=== PATIENT | female | born 1980 | race Caucasian/White ===

== ENCOUNTER → 2017-05-05 | Outpatient (CLI) | payer OTHER ==
[~2017-05-05] MED LIST: ACET50TA PO; BIOT50004 PO; D400400C PO; DOCU10ELUD PO; GLYB5TAB5 PO; IBUP80TA PO; LISI10TA2 PO; METF500T13 PO; MIRA3350 PO; OMEP20CA3 PO; PANT40TA2 PO; PHEN15CA PO; PRENTAB74 PO
[2017-05-05 10:11] LABS: BASO % 0.6 % (0.0-1.0); EOS # 0.3 K/mm3 (0.0-0.50); EOS % 3.5 % (0.0-3.0); LARGE UNSTAINED CELL # 0.2 K/mm3 (0.0-0.4); LYMPH % 38.1 % (24.0-44.0); MEAN CORPUSCULAR HEMOGLOBIN 29.5 pg (27.0-33.0); MEAN CORPUSCULAR HGB CONC 34.5 g/dl (32.0-36.5); MEAN CORPUSCULAR VOLUME 85.4 fl (80.0-96.0); MONO # 0.5 K/mm3 (0.0-0.8); MONO % 6.4 % (0.0-5.0); NEUTROPHILS # 3.7 K/mm3 (1.8-7.7); NEUTROPHILS % 49.4 % (36.0-66.0); PLATELET COUNT, AUTOMATED 279 k/mm3 (150-450); WHITE BLOOD COUNT 7.4 K/mm3 (4.0-10.0)
[2017-05-05 10:43] LABS: ALBUMIN 3.6 GM/DL (3.2-5.2); ALKALINE PHOSPHATASE 62 U/L (45-117); ALT/SGPT 31 U/L (12-78); ANION GAP 9 MEQ/L (8-16); AST/SGOT 14 U/L (15-37); BILIRUBIN,TOTAL 0.9 MG/DL (0.2-1.0); BLOOD UREA NITROGEN 11 MG/DL (7-18); CALCIUM LEVEL 8.7 MG/DL (8.5-10.1); CARBON DIOXIDE LEVEL 24 MEQ/L (21-32); CHLORIDE LEVEL 106 MEQ/L (98-107); CHOLESTEROL LEVEL 191 MG/DL (<200); CREATININE FOR GFR 0.74 MG/DL (0.55-1.02); FREE T4 1.21 NG/DL (0.76-1.46); GLOMERULAR FILTRATION RATE > 60.0 (>60); GLUCOSE, FASTING 92 MG/DL (70-105); POTASSIUM SERUM 4.5 MEQ/L (3.5-5.1); SODIUM LEVEL 139 MEQ/L (136-145); TOTAL PROTEIN 7.6 GM/DL (6.4-8.2); TRIGLYCERIDES LEVEL 198 MG/DL (<150)
== END ==
LOC: M LAB 09:33
PROVIDERS: ATTEND Nurse Practitioner Adult Health
DX: E55.9 Vitamin D deficiency, unspecified (principal); E66.9 Obesity, unspecified; E78.1 Pure hyperglyceridemia; E78.00 Pure hypercholesterolemia, unspecified; I10 Essential (primary) hypertension; Z79.899 Other long term (current) drug therapy

== ENCOUNTER 2017-06-15 12:24 | Outpatient (CLI) | payer OTHER ==
[~2017-06-15] VITALS: Ht 170.2 cm; Wt 117.0 kg
[2017-06-15] MEDS ORDERED: NS 1,000 ML IV ONE (13:30)
[2017-06-15] MEDS ORDERED: PROPOFOL 200 MG/20 ML VIAL As Ordered ONE (14:33)
--- NOTE | 2017-06-15 15:24 | ROOR ---
Patient Name: Elham Anguiano Procedure Date: 06/15/2017 3:07 PM Date of : 1980 Age: 36 Room: [facility] Gender: Female Note Status: Finalized Procedure: Colonoscopy Indications: Hematochezia Providers: Raman GONZALEZ MD Referring MD: KAYY SCALES NP Requesting Provider: Medicines: Monitored Anesthesia Care Complications: No immediate complications. Procedure: Pre-Anesthesia Assessment: - The heart rate, respiratory rate, oxygen saturations, blood pressure, adequacy of pulmonary ventilation, and response to care were monitored throughout the procedure. The Colonoscope was introduced through the anus and advanced to 3 cm into the ileum. The colonoscopy was performed without difficulty. The patient tolerated the procedure well. The quality of the bowel preparation was good. Findings: The perianal and digital rectal examinations were normal. Small Internal Hemorrhoids. A few medium-mouthed diverticula were found in the sigmoid colon. The terminal ileum appeared normal. The entire examined colon appeared normal on direct and retroflexion views. Impression: - Small Internal Hemorrhoids. - Mild diverticulosis in the sigmoid colon. - The examined portion of the ileum was normal. - The entire examined colon is normal on direct and retroflexion views. - No specimens collected. Recommendation: - Use fiber, for example Citrucel, Fibercon, Konsyl or Metamucil. Raman Gonzalez MD Raman GONZALEZ MD 06/15/2017 3:24:07 PM This report has been signed electronically. Number of Addenda: 0 Note Initiated On: 06/15/2017 3:07 PM Estimated Blood Loss: Estimated blood loss: none.
[2017-06-15 15:50] VITALS: BP 131/84
== END 2017-06-15 16:10 | disposition home or self-care (01) ==
LOC: M OPP 12:24
PROVIDERS: ATTEND Internal Medicine Gastroenterology
DX: K92.1 Melena (principal); K64.8 Other hemorrhoids; K57.30 Diverticulosis of large intestine without perforation or abscess without bleeding; I10 Essential (primary) hypertension; E11.9 Type 2 diabetes mellitus without complications; K59.00 Constipation, unspecified; R12 Heartburn; J45.909 Unspecified asthma, uncomplicated; Z88.2 Allergy status to sulfonamides; Z91.013 Allergy to seafood; Z91.018 Allergy to other foods; Z79.84 Long term (current) use of oral hypoglycemic drugs; Z79.899 Other long term (current) drug therapy; Z80.3 Family history of malignant neoplasm of breast

== ENCOUNTER → 2017-10-06 | Outpatient (CLI) | payer OTHER ==
[2017-10-06 09:24] LABS: BASO % 0.5 % (0.0-1.0); EOS # 0.1 10^3/uL (0.0-0.50); EOS % 1.3 % (0.0-3.0); HEMATOCRIT 42.5 % (36.0-47.0); HEMOGLOBIN 14.6 g/dl (12.0-16.0); IMMATURE GRANULOCYTE % 0.3 % (0-0); LYMPH # 3.1 10^3/uL (1.5-4.5); LYMPH % 40.3 % (24.0-44.0); MEAN CORPUSCULAR HEMOGLOBIN 29.3 pg (27.0-33.0); MEAN CORPUSCULAR HGB CONC 34.4 g/dl (32.0-36.5); MEAN CORPUSCULAR VOLUME 85.2 fl (80.0-96.0); MONO # 0.7 10^3/uL (0.0-0.8); MONO % 8.5 % (0.0-5.0); NEUTROPHILS # 3.7 10^3/uL (1.8-7.7); NEUTROPHILS % 49.1 % (36.0-66.0); PLATELET COUNT, AUTOMATED 295 10^3/uL (150-450); RED BLOOD COUNT 4.99 10^6/uL (4.00-5.40); RED CELL DISTRIBUTION WIDTH 12.6 % (11.5-14.5); WHITE BLOOD COUNT 7.6 10^3/uL (4.0-10.0)
[2017-10-06 10:00] LABS: ALBUMIN/GLOBULIN RATIO 1.08 (1.00-1.93); ALKALINE PHOSPHATASE 53 U/L (45-117); ALT/SGPT 26 U/L (12-78); ANION GAP 8 MEQ/L (8-16); AST/SGOT 14 U/L (7-37); BILIRUBIN,TOTAL 0.9 MG/DL (0.2-1.0); BLOOD UREA NITROGEN 12 MG/DL (7-18); CALCIUM LEVEL 8.9 MG/DL (8.5-10.1); CARBON DIOXIDE LEVEL 27 MEQ/L (21-32); CHLORIDE LEVEL 105 MEQ/L (98-107); CHOLESTEROL LEVEL 174 MG/DL (<200); CHOLESTEROL RISK RATIO 3.866 (<5); CREATININE FOR GFR 0.75 MG/DL (0.55-1.02); FREE T4 1.33 NG/DL (0.76-1.46); GLOMERULAR FILTRATION RATE > 60.0 (>60); GLUCOSE, FASTING 106 MG/DL (70-105); HDL CHOLESTEROL 45 MG/DL (>40); NON-HDL-C 129 MG/DL; POTASSIUM SERUM 4.1 MEQ/L (3.5-5.1); SODIUM LEVEL 140 MEQ/L (136-145); THYROID STIMULATING HORMONE 0.333 uIU/ML (0.358-3.740); TOTAL PROTEIN 7.7 GM/DL (6.4-8.2); TRIGLYCERIDES LEVEL 120 MG/DL (<150)
[2017-10-06 10:08] LABS: ESTIMATED AVERAGE GLUCOSE 108 MG/DL (60-110); HEMOGLOBIN A1c 5.4 %
[2017-10-08 11:58] LABS: TOTAL 25(OH) VITAMIN D 51.1 NG/ML (30.0-100.0)
== END ==
LOC: M LAB 08:52
DX: E78.1 Pure hyperglyceridemia (principal); E55.9 Vitamin D deficiency, unspecified; E28.2 Polycystic ovarian syndrome; Z79.899 Other long term (current) drug therapy
CPT/HCPCS: 84443

== ENCOUNTER → 2018-03-02 | Outpatient (CLI) | payer OTHER ==
[2018-03-02 09:09] LABS: BASO % 0.6 % (0.0-1.0); EOS # 0.2 10^3/uL (0.0-0.50); EOS % 2.3 % (0.0-3.0); HEMATOCRIT 41.8 % (36.0-47.0); HEMOGLOBIN 14.2 g/dl (12.0-15.5); IMMATURE GRANULOCYTE % 0.3 % (0-3.0); MEAN CORPUSCULAR HEMOGLOBIN 29.5 pg (27.0-33.0); MEAN CORPUSCULAR VOLUME 86.9 fl (80.0-96.0); MONO # 0.9 10^3/uL (0.0-0.8); MONO % 12.9 % (0.0-5.0); NEUTROPHILS # 2.6 10^3/uL (1.8-7.7); NEUTROPHILS % 38.9 % (36.0-66.0); PLATELET COUNT, AUTOMATED 255 10^3/uL (150-450); RED BLOOD COUNT 4.81 10^6/uL (4.00-5.40); RED CELL DISTRIBUTION WIDTH 12.6 % (11.5-14.5); WHITE BLOOD COUNT 6.7 10^3/uL (4.0-10.0)
[2018-03-02 09:47] LABS: ALBUMIN 3.9 GM/DL (3.2-5.2); ALBUMIN/GLOBULIN RATIO 1.03 (1.00-1.93); ALKALINE PHOSPHATASE 71 U/L (45-117); ALT/SGPT 18 U/L (12-78); ANION GAP 7 MEQ/L (8-16); AST/SGOT 11 U/L (7-37); BILIRUBIN,TOTAL 0.6 MG/DL (0.2-1.0); BLOOD UREA NITROGEN 12 MG/DL (7-18); CALCIUM LEVEL 8.9 MG/DL (8.5-10.1); CARBON DIOXIDE LEVEL 29 MEQ/L (21-32); CHLORIDE LEVEL 104 MEQ/L (98-107); CHOLESTEROL LEVEL 150 MG/DL (<200); CHOLESTEROL RISK RATIO 3.191 (<5); FREE T4 1.21 NG/DL (0.76-1.46); GLOMERULAR FILTRATION RATE > 60.0 (>60); GLUCOSE, FASTING 93 MG/DL (70-100); HDL CHOLESTEROL 47 MG/DL (>40); LDL CHOLESTEROL 89.4 MG/DL (<100); NON-HDL-C 103 MG/DL; SODIUM LEVEL 140 MEQ/L (136-145); THYROID STIMULATING HORMONE 0.585 uIU/ML (0.358-3.740); TOTAL PROTEIN 7.7 GM/DL (6.4-8.2); TRIGLYCERIDES LEVEL 68 MG/DL (<150)
[2018-03-02 10:10] LABS: ESTIMATED AVERAGE GLUCOSE 103 MG/DL (60-110); HEMOGLOBIN A1c 5.2 %
[2018-03-04 10:12] LABS: TOTAL 25(OH) VITAMIN D 42.8 NG/ML (30.0-100.0)
== END ==
LOC: M LAB 08:19
DX: Z51.81 Encounter for therapeutic drug level monitoring (principal); Z79.899 Other long term (current) drug therapy; E78.1 Pure hyperglyceridemia; E55.9 Vitamin D deficiency, unspecified
CPT/HCPCS: 84443

== ENCOUNTER → 2018-11-29 | Outpatient (REF) | payer OTHER ==
[~2018-11-29] MED LIST changes: -PANT40TA2 PO; +PANT40TA3 PO
[2018-11-29 20:56] LABS: INFLUENZA A AMPLIFICATION POSITIVE (NEGATIVE); INFLUENZA B AMPLIFICATION NEGATIVE (NEGATIVE)
== END ==
LOC: M LAB REF 13:02
PROVIDERS: ATTEND Physician Assistant
DX: J11.1 Influenza due to unidentified influenza virus with other respiratory manifestations (principal)

== ENCOUNTER → 2018-12-07 | Outpatient (CLI) | payer OTHER ==
[2018-12-07 09:13] LABS: BASO % 0.4 % (0.0-1.0); EOS # 0.1 10^3/uL (0.0-0.50); EOS % 1.4 % (0.0-3.0); HEMOGLOBIN 13.7 g/dl (12.0-15.5); LYMPH % 42.5 % (24.0-44.0); MEAN CORPUSCULAR HEMOGLOBIN 28.7 pg (27.0-33.0); MEAN CORPUSCULAR HGB CONC 32.6 g/dl (32.0-36.5); MEAN CORPUSCULAR VOLUME 88.1 fl (80.0-96.0); MONO # 0.4 10^3/uL (0.0-0.8); MONO % 5.9 % (0.0-5.0); NEUTROPHILS # 3.5 10^3/uL (1.8-7.7); NEUTROPHILS % 49.7 % (36.0-66.0); PLATELET COUNT, AUTOMATED 257 10^3/uL (150-450); RED BLOOD COUNT 4.77 10^6/uL (4.00-5.40); WHITE BLOOD COUNT 7.1 10^3/uL (4.0-10.0)
[2018-12-07 09:42] LABS: ALBUMIN 3.6 GM/DL (3.2-5.2); ALT/SGPT 23 U/L (12-78); BILIRUBIN,TOTAL 0.5 MG/DL (0.2-1.0); BLOOD UREA NITROGEN 11 MG/DL (7-18); CARBON DIOXIDE LEVEL 30 MEQ/L (21-32); CHLORIDE LEVEL 107 MEQ/L (98-107); CHOLESTEROL LEVEL 180 MG/DL (<200); CREATININE FOR GFR 0.72 MG/DL (0.55-1.30); FREE T4 1.14 NG/DL (0.76-1.46); GLOMERULAR FILTRATION RATE > 60.0 (>60); GLUCOSE, FASTING 91 MG/DL (70-100); HDL CHOLESTEROL 41 MG/DL (>40); LDL CHOLESTEROL 95 MG/DL (<100); NON-HDL-C 139 MG/DL; POTASSIUM SERUM 4.6 MEQ/L (3.5-5.1); SODIUM LEVEL 142 MEQ/L (136-145); THYROID STIMULATING HORMONE 0.414 uIU/ML (0.358-3.740); TOTAL PROTEIN 7.3 GM/DL (6.4-8.2); TRIGLYCERIDES LEVEL 218 MG/DL (<150)
[2018-12-07 09:45] LABS: HEMOGLOBIN A1c 5.6 %
== END ==
LOC: M LAB 08:49
PROVIDERS: ATTEND Physician Assistant Medical
DX: E11.9 Type 2 diabetes mellitus without complications (principal); E05.90 Thyrotoxicosis, unspecified without thyrotoxic crisis or storm; R53.83 Other fatigue; E78.2 Mixed hyperlipidemia

== ENCOUNTER → 2020-07-25 | Outpatient (REF) | payer OTHER ==
[~2020-07-25] MED LIST changes: -ACET50TA PO; -DOCU10ELUD PO; +DOCU5LIQ PO; +LISI10TA15 PO; -LISI10TA2 PO; +MAPA500T17 PO; +PANT40TA29 PO; -PANT40TA3 PO
[2020-07-26 08:46] LABS: APPEARANCE, URINE CLOUDY (CLEAR); COLOR, URINE RED (YELLOW); SPECIFIC GRAVITY URINE AUTO 1.018 (1.002-1.035)
[2020-07-26 08:47] LABS: BILIRUBIN, URINE AUTO NEGATIVE (NEGATIVE); GLUCOSE, URINE (UA) AUTO NEGATIVE (NEGATIVE); KETONE, URINE AUTO NEGATIVE (NEGATIVE); NITRITE, URINE AUTO POSITIVE (NEGATIVE); PROTEIN, URINE AUTO 2+ mg/dL (NEGATIVE)
[2020-07-26 08:48] LABS: BLOOD, URINE BLOOD 3+ (NEGATIVE); LEUKOCYTE ESTERASE, URINE AUTO 2+ (NEGATIVE)
== END ==
LOC: M LAB REF 08:38
PROVIDERS: ATTEND Physician Assistant
DX: R30.0 Dysuria (principal)

== ENCOUNTER → 2020-11-22 | Outpatient (CLI) | payer OTHER ==
[2020-11-22 09:57] LABS: BASO % 0.3 % (0.0-1.0); EOS # 0.2 10^3/uL (0.0-0.5); EOS % 1.5 % (0.0-3.0); HEMATOCRIT 42.6 % (36.0-47.0); HEMOGLOBIN 14.2 g/dl (12.0-15.5); LYMPH # 3.3 10^3/uL (1.5-5.0); LYMPH % 31.3 % (24.0-44.0); MEAN CORPUSCULAR HEMOGLOBIN 30.3 pg (27.0-33.0); MEAN CORPUSCULAR HGB CONC 33.3 g/dl (32.0-36.5); MEAN CORPUSCULAR VOLUME 90.8 fl (80.0-96.0); MONO # 0.8 10^3/uL (0.0-0.8); MONO % 7.4 % (2.0-8.0); NEUTROPHILS # 6.1 10^3/uL (1.5-8.5); PLATELET COUNT, AUTOMATED 245 10^3/uL (150-450); RED BLOOD COUNT 4.69 10^6/uL (4.00-5.40); WHITE BLOOD COUNT 10.4 10^3/uL (4.0-10.0)
[2020-11-22 10:33] LABS: ALBUMIN 3.7 GM/DL (3.2-5.2); ALT/SGPT 50 U/L (12-78); BILIRUBIN,TOTAL 0.6 MG/DL (0.2-1.0); BLOOD UREA NITROGEN 15 MG/DL (7-18); CALCIUM LEVEL 9.1 MG/DL (8.5-10.1); CARBON DIOXIDE LEVEL 26 MEQ/L (21-32); CHLORIDE LEVEL 105 MEQ/L (98-107); CHOLESTEROL LEVEL 147 MG/DL (<200); CREATININE FOR GFR 0.81 MG/DL (0.55-1.30); FREE T4 0.95 NG/DL (0.76-1.46); GLOMERULAR FILTRATION RATE > 60.0 (>58); GLUCOSE, FASTING 123 MG/DL (70-100); HDL CHOLESTEROL 44 MG/DL (>40); LDL CHOLESTEROL 65 MG/DL (<100); NON-HDL-C 103 MG/DL; POTASSIUM SERUM 4.4 MEQ/L (3.5-5.1); SODIUM LEVEL 137 MEQ/L (136-145); TOTAL PROTEIN 7.4 GM/DL (6.4-8.2); TRIGLYCERIDES LEVEL 192 MG/DL (<150)
== END ==
LOC: M WUC 08:12
PROVIDERS: ATTEND Physician Assistant Medical
DX: R53.83 Other fatigue (principal); I10 Essential (primary) hypertension; E78.2 Mixed hyperlipidemia

== ENCOUNTER 2021-07-27 18:32 | Emergency (ER) | payer OTHER ==
[~2021-07-27] VITALS: Ht 170.2 cm; Wt 136.4 kg
--- OUTSIDE RECORDS SUMMARY | 2021-07-27 18:39 | CCD | Continuity of Care Document ---
Author Author Elham ALEMAN Organization Unknown Address [id number] [address] [place] [address] Phone [phone] Care Team Providers Care Planner Intern Name Role Phone CHEVY ALEMAN AUTM [phone] Social History Type Date Description Comments Sex Unknown Procedures Date Code Description Status 05/31/2021 11080 Office/Outpatient Established Lo w MDM 20-29 Min Completed 02/24/2021 03407 Office/Outpatient Established Lo w MDM 20-29 Min Completed Encounters Type Date Location Provider Dx Diagnosis Office Visit 05/31/2021 8:30a [facility] QUEENIE Eduardo I10 Essential (primary) hyperten latasha E78.5 Hyperlipidemia, unspecified E55.9 Vitamin D deficiency, unspec ified Office Visit 02/24/2021 9:30a [facility] QUEENIE Eduardo I10 Essential (primary) hyperten latasha E78.5 Hyperlipidemia, unspecified E66.9 Obesity, unspecified Assessments Date Code Description Provider 05/31/2021 I10 Essential (primary) hypertension QUEENIE Rick 05/31/2021 E78.5 Hyperlipidemia, unspecified QUEENIE Welch 05/31/2021 E55.9 Vitamin D deficiency, unspecifie d QUEENIE Rick 02/24/2021 I10 Essential (primary) hypertension QUEENIE Rick 02/24/2021 E78.5 Hyperlipidemia, unspecified QUEENIE Welch 02/24/2021 E66.9 Obesity, unspecified QUEENIE Rick Plan of Treatment Future Appointment(s):* 08/30/2021 2:00 pm - QUEENIE Rick at [facility] Referrals Refer to Reason for Referral Status Appt Date [facility] - ENT PATIENT WITH C/O PHANTOSMIA ,POSSIBLE POLYPS. PLEASE EVAL AND TREAT Sent 03/08/[address] [place] [address] [phone]
--- OUTSIDE RECORDS SUMMARY | 2021-07-27 18:39 | CCD ---
Author Author [facility] Organization [facility] Address Unknown Phone Unavailable Care Team Providers Care Rubber Off Name Role Phone Elieser Ballesteros MD Unavailable Unavailable Elieser Ballesteros MD Unavailable Unavailable Elieser Ballesteros MD Unavailable Unavailable Elieser Ballesteros MD Unavailable Unavailable Elieser Ballesteros MD Unavailable Unavailable Elieser Ballesteros MD Unavailable Unavailable Elieser Ballesteros MD Unavailable Unavailable Elieser Ballesteros MD Unavailable Unavailable Elieser Ballesteros MD Unavailable Unavailable Elieser Ballesteros MD Unavailable Unavailable Elieser Ballesteros MD Unavailable Unavailable Elieser Ballesteros MD Unavailable Unavailable Elieser Ballesteros MD Unavailable Unavailable Elieser Ballesteros MD Unavailable Unavailable Elieser Ballesteros MD Unavailable Unavailable Elieser Ballesteros MD Unavailable Unavailable Elieser Ballesteros MD Unavailable Unavailable Elieser Ballesteros MD Unavailable Unavailable Elieser Ballesteros MD Unavailable Unavailable Elieser Ballesteros MD Unavailable Unavailable Elieser Ballesteros MD Unavailable Unavailable Elieser Ballesteros MD Unavailable Unavailable Elieser Ballesteros MD Unavailable Unavailable Elieser Ballesteros MD Unavailable Unavailable Elieser Ballesteros MD Unavailable Unavailable Elieser Ballesteros MD Unavailable Unavailable Elieser Ballesteros MD Unavailable Unavailable Elieser Ballesteros MD Unavailable Unavailable Elieser Ballesteros MD Unavailable Unavailable Elieser Ballesteros MD Unavailable Unavailable Elieser Ballesteros MD Unavailable Unavailable Veronika ALEMAN CHEVY PA Unavailable Unavailable HETALTAVeronika PUENTES CHEVY PA Unavailable Unavailable TONTARSANA CRISTINA G CHEVY PA Unavailable Unavailable TONTADELORIS G CHEVY PA Unavailable Unavailable TONTADELORIS G CHEVY PA Unavailable Unavailable TONTARSKI, G CHEVY PA Unavailable Unavailable TONTARSANA CRISTINA, G CHEVY PA Unavailable Unavailable TONTARSAN ACRISTINA, G CHEVY PA Unavailable Unavailable TONTARSANA CRISTINA, G CHEVY PA Unavailable Unavailable TONTARSANA CRISTINA, G CHEVY PA Unavailable Unavailable TONTARSANA CRISTINA, G CHEVY PA Unavailable Unavailable TONTARSANA CRISTINA, G CHEVY PA Unavailable Unavailable TONTARSKI, G CHEVY PA Unavailable Unavailable TONTARSANA CRISTINA, G CHEVY PA Unavailable Unavailable TONTARSANA CRISTINA, G CHEVY PA Unavailable Unavailable TONTARSANA CRISTINA, G CHEVY PA Unavailable Unavailable TONTARSANA CRISTINA, G CHEVY PA Unavailable Unavailable TONTARSANA CRISTINA, G CHEVY PA Unavailable Unavailable TONTARSANA CRISTINA, G CHEVY PA Unavailable Unavailable TONTARSANA CRISTINA, G CHEVY PA Unavailable Unavailable TONTARSANA CRISTINA, G CHEVY PA Unavailable Unavailable TONTARSANA CRISTINA, G CHEVY PA Unavailable Unavailable TONTARSANA CRISTINA, G CHEVY PA Unavailable Unavailable TONTARSANA CRISTINA, G CHEVY PA Unavailable Unavailable TONTARSANA CRISTINA, G CHEVY PA Unavailable Unavailable TONTARSANA CRISTINA, G CHEVY PA Unavailable Unavailable TONTARSANA CRISTINA, G CHEVY PA Unavailable Unavailable TONTARSANA CRISTINA, G CHEVY PA Unavailable Unavailable TONTARSANA CRISTINA, G CHEVY PA Unavailable Unavailable TONTARSANA CRISTINA, G CHEVY PA Unavailable Unavailable TONTARSANA CRISTINA, G CHEVY PA Unavailable Unavailable TONTARSANA CRISTINA, G CHEVY PA Unavailable Unavailable TONTARSANA CRISTINA, G CHEVY PA Unavailable Unavailable TONTARSANA CRISTINA, G CHEVY PA Unavailable Unavailable TONTARSANA CRISTINA, G CHEVY PA Unavailable Unavailable TONTARSANA CRISTINA, G CHEVY PA Unavailable Unavailable TONTARSANA CRISTINA, G CHEVY PA Unavailable Unavailable TONTARSANA CRISTINA, G CHEVY PA Unavailable Unavailable TONTARSANA CRISTINA, G CHEVY PA Unavailable Unavailable TONTARSANA CRISTINA, G CHEVY PA Unavailable Unavailable TONTARSANA CRISTINA, G CHEVY PA Unavailable Unavailable TONTARSANA CRISTINA, G CHEVY PA Unavailable Unavailable TONTARSANA CRISTINA, G CHEVY PA Unavailable Unavailable TONTARSANA CRISTINA, G CHEVY PA Unavailable Unavailable TONTARSANA CRISTINA, G CHEVY PA Unavailable Unavailable TONTARSANA CRISTINA, G CHEVY PA Unavailable Unavailable TONTARSANA CRISTINA, G CHEVY PA Unavailable Unavailable Re-disclosure Warning The records that you are about to access may contain information from federally-assisted alcohol or drug abuse programs. If such information is present, then the following federally mandated warning applies: This information has been disclosed to you from records protected by federal confidentiality rules (42 CFR part 2). The federal rules prohibit you from making any further disclosure of this information unless further disclosure is expressly permitted by the written consent of the person to whom it pertains or as otherwise permitted by 42 CFR part 2. A general authorization for the release of medical or other information is NOT sufficient for this purpose. The Federal rules restrict any use of the information to criminally investigate or prosecute any alcohol or drug abuse patient.The records that you are about to access may contain highly sensitive health information, the redisclosure of which is protected by Article 27-F of the [facility] Public Health law. If you continue you may have access to information: Regarding HIV / AIDS; Provided by facilities licensed or operated by the [facility] Office of Mental Health; or Provided by the [facility] Office for People With Developmental Disabilities. If such information is present, then the following [facility] mandated warning applies: This information has been disclosed to you from confidential records which are protected by state law. State law prohibits you from making any further disclosure of this information without the specific written consent of the person to whom it pertains, or as otherwise permitted by law. Any unauthorized further disclosure in violation of state law may result in a fine or mcc sentence or both. A general authorization for the release of medical or other information is NOT sufficient authorization for further disc losure. Family History Family Member Name Family Member Gender Family Member Status Date o f Status Description Data Source(s) Unknown Unknown Problem [facility] ([facility]) Unknown Unknown Problem [facility] ([facility] Encounters Encounter Providers Location Date Indications Data Source(s ) Outpatient Attender: CHEVY banda 05/31/2021 08:30:00 AM EDT [facility] ([facility]) Outpatient Attender: Elieser Dudley/Lesli/Dennis/Joan mendes 03/08/2021 09:20:00 AM EDT [facility] ([facility] Outpatient Attender: CHEVY LUONGANA CRISTINA [facility] 02/24/2021 09:30:00 AM EDT [facility] ([facility] MD) Outpatient Attender: CHEVY LUONGANA CRISTINA [facility] 11/24/2020 02:00:00 PM EST [facility] ([facility]ana MD) Outpatient Attender: CHEVY LOVE [facility] 08/26/2020 02:30:00 PM EST [facility] ([facility] Magana MD) Immunizations Vaccine Date Status Description Data Source(s) COVID-19 VACCINE Link 02/09/2021 12:00:00 AM EDT completed buildab[employer]SIIS Vaccine Series Complete: YESThis Data wa s Submitted to [facility] Via [employer]. Medications Medication Brand Name Start Date Product Form Dose Route Admi nistrative Instructions Pharmacy Instructions Status Indications Reaction Description Data Source(s) 90 mcg/actuation 06/14/2021 12:00:00 AM EDT HFA aerosol inha ler 18 INHALE TWO PUFFS BY MOUTH FOUR TIMES A DAY NEEDED FOR WHEEZING INHALE TWO PUFFS BY MOUTH FOUR TIMES A DAY NEEDED FOR WHEEZING SOLD: 06/17/2021 [facility] Amoxicillin 875 MG / Clavulanate 125 MG Oral Tablet 87 5-125 mg AMOXICILLIN/POTASSIUM CLAV 06/12/2021 12:00:00 AM EDT tablet 20 TAKE ONE TABLET BY MOUTH TWICE A DAY WITH FOOD FOR 10 DAYS TAKE ONE TABLET BY MOUTH TWICE A DAY WITH FOOD FOR 10 DAYS SOLD: 06/13/2021 [facility] 20-12.5 mg 05/31/2021 12:00:00 AM EDT tablet 30 TAKE ONE TABLET BY MOUTH EVERY DAY TAKE ONE TABLET BY MOUTH EVERY DAY SOLD: 06/01/2021 [facility] 20-12.5 mg 05/31/2021 12:00:00 AM EDT tablet 30 TAKE ONE TABLET BY MOUTH EVERY DAY TAKE ONE TABLET BY MOUTH EVERY DAY SOLD: 07/06/2021 [facility] atorvastatin 20 MG Oral Tablet ATORVASTATIN CALCIUM 05/31/2021 1 2:00:00 AM EDT tablet 30 TAKE ONE TABLET BY MOUTH AT BEDT AMOL TAKE ONE TABLET BY MOUTH AT BEDTIME SOLD: 06/01/2021 [facility] 24 HR Metformin hydrochloride 500 MG Extended Release Oral T ablet METFORMIN HCL 05/31/2021 12:00:00 AM EDT tablet extended release 24 hr 60 TAKE TWO TABLETS BY MOUTH EVERY DAY TAKE TWO TABLETS BY MOUTH EVERY DAY SOLD: 06/01/2021 [facility] 20 mg 05/30/2021 12:00:00 AM EDT capsule,delayed release (DR/EC) 30 TAKE ONE TABLET BY MOUTH EVERY DAY TAKE ONE TABLET BY MOUTH EVERY DAY SOLD: 06/01/2021 [facility] 50 mg 05/30/2021 12:00:00 AM EDT tablet extended release 24 hr 30 TAKE ONE TABLET BY MOUTH ONCE A DAY TAKE ONE TABLET BY MOUTH ONCE A DAY SOLD: 07/06/2021 [facility] 50 mg 05/30/2021 12:00:00 AM EDT tablet extended release 24 hr 30 TAKE ONE TABLET BY MOUTH ONCE A DAY TAKE ONE TABLET BY MOUTH ONCE A DAY SOLD: 06/01/2021 [facility] 20 mg 05/30/2021 12:00:00 AM EDT capsule,delayed release (DR/EC) 30 TAKE ONE TABLET BY MOUTH EVERY DAY TAKE ONE TABLET BY MOUTH EVERY DAY SOLD: 07/06/2021 [facility] 20 mg 03/09/2021 12:00:00 AM EDT capsule,delayed release (DR/EC) 30 TAKE ONE CAPSULE BY MOUTH EVERY DAY TAKE ONE CAPSULE BY MOUTH EVERY DAY SOLD: 03/18/2021 [facility] Hydrochlorothiazide 12.5 MG / Lisinopril 10 MG Oral Ta blet 10-12.5 mg LISINOPRIL/HYDROCHLOROTHIAZIDE 03/09/2021 12:00:00 AM EDT tablet 30 TAKE ONE TABLET BY MOUTH EVERY DAY TAKE ONE TABLET BY MOUTH EVERY DAY SOLD: 03/18/2021 [facility] 42 mcg (0.06 %) 03/09/2021 12:00:00 AM EDT spray,non-aerosol 15 SPRAY 2 SPRAYS IN EACH NOSTRILS TWO TIMES A DAY SPRAY 2 SPRAYS IN EACH NOSTRILS TWO TIMES A DAY SOLD: 03/18/2021 [facility] 50 mg 03/09/2021 12:00:00 AM EDT tablet extended release 24 hr 30 TAKE ONE TABLET BY MOUTH EVERY DAY TAKE ONE TABLET BY MOUTH EVERY DAY SOLD: 03/18/2021 [facility] [facility] [place] 03/08/2021 12:00:00 AM EDT active [facility] ([facility], ) atorvastatin 20 MG Oral Tablet ATORVASTATIN CALCIUM 02/24/2021 1 2:00:00 AM EDT tablet 30 TAKE ONE TABLET BY MOUTH AT BEDT AMOL TAKE ONE TABLET BY MOUTH AT BEDTIME SOLD: 02/27/2021 [facility] Hydrochlorothiazide 12.5 MG / Lisinopril 10 MG Oral Ta blet 10-12.5 mg LISINOPRIL/HYDROCHLOROTHIAZIDE 02/11/2021 12:00:00 AM EDT tablet 30 TAKE ONE TABLET BY MOUTH EVERY DAY TAKE ONE TABLET BY MOUTH EVERY DAY SOLD: 06/01/2021 [facility] 500 mg 02/11/2021 12:00:00 AM EDT tablet extended release 24 hr 60 TAKE 2 TABLET BY MOUTH ONCE A DAY TAKE 2 TABLET BY MOUTH ONCE A DAY SOLD: 03/18/2021 [facility] Hydrochlorothiazide 12.5 MG / Lisinopril 10 MG Oral Ta blet 10-12.5 mg LISINOPRIL/HYDROCHLOROTHIAZIDE 02/11/2021 12:00:00 AM EDT tablet 30 TAKE ONE TABLET BY MOUTH EVERY DAY TAKE ONE TABLET BY MOUTH EVERY DAY SOLD: 04/08/2021 [facility] Hydrochlorothiazide 12.5 MG / Lisinopril 10 MG Oral Ta blet 10-12.5 mg LISINOPRIL/HYDROCHLOROTHIAZIDE 02/11/2021 12:00:00 AM EDT tablet 30 TAKE ONE TABLET BY MOUTH EVERY DAY TAKE ONE TABLET BY MOUTH EVERY DAY SOLD: 02/12/2021 [facility] 500 mg 02/11/2021 12:00:00 AM EDT tablet extended release 24 hr 60 TAKE 2 TABLET BY MOUTH ONCE A DAY TAKE 2 TABLET BY MOUTH ONCE A DAY SOLD: 02/12/2021 [facility] 20 mg 11/25/2020 12:00:00 AM EST capsule,delayed release (DR/EC) 30 TAKE ONE TABLET BY MOUTH EVERY DAY TAKE ONE TABLET BY MOUTH EVERY DAY SOLD: 02/12/2021 [facility] atorvastatin 20 MG Oral Tablet ATORVASTATIN CALCIUM 11/25/2020 1 2:00:00 AM EST tablet 30 TAKE ONE TABLET BY MOUTH AT BEDT AMOL TAKE ONE TABLET BY MOUTH AT BEDTIME SOLD: 12/01/2020 [facility] 20 mg 11/25/2020 12:00:00 AM EST capsule,delayed release (DR/EC) 30 TAKE ONE TABLET BY MOUTH EVERY DAY TAKE ONE TABLET BY MOUTH EVERY DAY SOLD: 12/01/2020 [facility] 20 mg 11/25/2020 12:00:00 AM EST capsule,delayed release (DR/EC) 30 TAKE ONE TABLET BY MOUTH EVERY DAY TAKE ONE TABLET BY MOUTH EVERY DAY SOLD: 04/08/2021 [facility] Hydrochlorothiazide 12.5 MG / Lisinopril 10 MG Oral Ta blet 10-12.5 mg LISINOPRIL/HYDROCHLOROTHIAZIDE 10/18/2020 12:00:00 AM EST tablet 30 TAKE ONE TABLET BY MOUTH EVERY DAY TAKE ONE TABLET BY MOUTH EVERY DAY SOLD: 10/20/2020 [facility] Hydrochlorothiazide 12.5 MG / Lisinopril 10 MG Oral Ta blet 10-12.5 mg LISINOPRIL/HYDROCHLOROTHIAZIDE 10/18/2020 12:00:00 AM EST tablet 30 TAKE ONE TABLET BY MOUTH EVERY DAY TAKE ONE TABLET BY MOUTH EVERY DAY SOLD: 11/20/2020 [facility] Hydrochlorothiazide 12.5 MG / Lisinopril 10 MG Oral Ta blet 10-12.5 mg LISINOPRIL/HYDROCHLOROTHIAZIDE 10/18/2020 12:00:00 AM EST tablet 30 TAKE ONE TABLET BY MOUTH EVERY DAY TAKE ONE TABLET BY MOUTH EVERY DAY SOLD: 01/03/2021 [facility] atorvastatin 20 MG Oral Tablet ATORVASTATIN CALCIUM 09/19/2020 1 2:00:00 AM EST tablet 30 TAKE ONE TABLET BY MOUTH AT BEDT AMOL TAKE ONE TABLET BY MOUTH AT BEDTIME SOLD: 11/05/2020 [facility] atorvastatin 20 MG Oral Tablet ATORVASTATIN CALCIUM 09/19/2020 1 2:00:00 AM EST tablet 30 TAKE ONE TABLET BY MOUTH AT BEDT AMOL TAKE ONE TABLET BY MOUTH AT BEDTIME SOLD: 09/21/2020 [facility] 500 mg 09/06/2020 12:00:00 AM EST tablet extended release 24 hr 60 TAKE 2 TABLET BY MOUTH ONCE A DAY TAKE 2 TABLET BY MOUTH ONCE A DAY SOLD: 01/06/2021 [facility] 500 mg 09/06/2020 12:00:00 AM EST tablet extended release 24 hr 60 TAKE 2 TABLET BY MOUTH ONCE A DAY TAKE 2 TABLET BY MOUTH ONCE A DAY SOLD: 09/07/2020 [facility] 500 mg 09/06/2020 12:00:00 AM EST tablet extended release 24 hr 60 TAKE 2 TABLET BY MOUTH ONCE A DAY TAKE 2 TABLET BY MOUTH ONCE A DAY SOLD: 11/20/2020 [facility] 50 mg 08/27/2020 12:00:00 AM EST tablet extended release 24 hr 30 TAKE ONE TABLET BY MOUTH ONCE A DAY TAKE ONE TABLET BY MOUTH ONCE A DAY SOLD: 01/06/2021 [facility] 50 mg 08/27/2020 12:00:00 AM EST tablet extended release 24 hr 30 TAKE ONE TABLET BY MOUTH ONCE A DAY TAKE ONE TABLET BY MOUTH ONCE A DAY SOLD: 02/12/2021 [facility] 50 mg 08/27/2020 12:00:00 AM EST tablet extended release 24 hr 30 TAKE ONE TABLET BY MOUTH ONCE A DAY TAKE ONE TABLET BY MOUTH ONCE A DAY SOLD: 10/20/2020 [facility] 50 mg 08/27/2020 12:00:00 AM EST tablet extended release 24 hr 30 TAKE ONE TABLET BY MOUTH ONCE A DAY TAKE ONE TABLET BY MOUTH ONCE A DAY SOLD: 08/28/2020 [facility] 50 mg 08/27/2020 12:00:00 AM EST tablet extended release 24 hr 30 TAKE ONE TABLET BY MOUTH ONCE A DAY TAKE ONE TABLET BY MOUTH ONCE A DAY SOLD: 04/08/2021 [facility] 50 mg 08/27/2020 12:00:00 AM EST tablet extended release 24 hr 30 TAKE ONE TABLET BY MOUTH ONCE A DAY TAKE ONE TABLET BY MOUTH ONCE A DAY SOLD: 11/20/2020 [facility] 150 mg 08/27/2020 12:00:00 AM EST tablet 1 TAKE ONE TABLET MY MOUTH ONCE TAKE ONE TABLET MY MOUTH ONCE SOLD: 08/28/2020 [facility] Cephalexin 500 MG Oral Capsule CEPHALEXIN 07/26/2020 12:00:00 AM EST capsule 21 TAKE ONE CAPSULE BY MOUTH THREE TIMES A DAY FOR 7 DAYS TAKE ONE CAPSULE BY MOUTH THREE TIMES A DAY FOR 7 DAYS SOLD: 07/26/2020 [facility] 10-12.5 mg 06/21/2020 12:00:00 AM EDT tablet 30 TAKE ONE TABLET BY MOUTH EVERY DAY TAKE ONE TABLET BY MOUTH EVERY DAY SOLD: 06/22/2020 [facility] 10-12.5 mg 06/21/2020 12:00:00 AM EDT tablet 30 TAKE ONE TABLET BY MOUTH EVERY DAY TAKE ONE TABLET BY MOUTH EVERY DAY SOLD: 07/29/2020 [facility] 10-12.5 mg 06/21/2020 12:00:00 AM EDT tablet 30 TAKE ONE TABLET BY MOUTH EVERY DAY TAKE ONE TABLET BY MOUTH EVERY DAY SOLD: 09/07/2020 [facility] 500 mg 06/08/2020 12:00:00 AM EDT tablet extended release 24 hr 60 TAKE TWO TABLETS BY MOUTH ONCE A DAY TAKE TWO TABLETS BY MOUTH ONCE A DAY SOLD: 06/20/2020 [facility] atorvastatin 20 MG Oral Tablet ATORVASTATIN CALCIUM 05/28/2020 1 2:00:00 AM EDT tablet 30 TAKE ONE TABLET BY MOUTH AT BEDT AMOL TAKE ONE TABLET BY MOUTH AT BEDTIME SOLD: 08/17/2020 [facility] atorvastatin 20 MG Oral Tablet ATORVASTATIN CALCIUM 05/28/2020 1 2:00:00 AM EDT tablet 30 TAKE ONE TABLET BY MOUTH AT BEDT AMOL TAKE ONE TABLET BY MOUTH AT BEDTIME SOLD: 05/29/2020 [facility] atorvastatin 20 MG Oral Tablet ATORVASTATIN CALCIUM 05/28/2020 1 2:00:00 AM EDT tablet 30 TAKE ONE TABLET BY MOUTH AT BEDT AMOL TAKE ONE TABLET BY MOUTH AT BEDTIME SOLD: 07/05/2020 [facility] 40 mg 05/27/2020 12:00:00 AM EDT tablet 30 TAKE ONE TABLET BY MOUTH ONCE A DAY TAKE ONE TABLET BY MOUTH ONCE A DAY SOLD: 07/05/2020 [facility] 40 mg 05/27/2020 12:00:00 AM EDT tablet 30 TAKE ONE TABLET BY MOUTH ONCE A DAY TAKE ONE TABLET BY MOUTH ONCE A DAY SOLD: 11/05/2020 [facility] 40 mg 05/27/2020 12:00:00 AM EDT tablet 30 TAKE ONE TABLET BY MOUTH ONCE A DAY TAKE ONE TABLET BY MOUTH ONCE A DAY SOLD: 05/29/2020 [facility] Famotidine 40 MG Oral Tablet FAMOTIDINE 05/27/2020 12:00:00 AM EDT tab let 30 TAKE ONE TABLET BY MOUTH ONCE A DAY TAKE ONE TABLET BY MOUTH ONCE A DAY SOLD: 09/29/2020 [facility] 40 mg 05/27/2020 12:00:00 AM EDT tablet 30 TAKE ONE TABLET BY MOUTH ONCE A DAY TAKE ONE TABLET BY MOUTH ONCE A DAY SOLD: 08/17/2020 [facility] 50 mg 05/17/2020 12:00:00 AM EDT tablet extended release 24 hr 30 TAKE ONE TABLET BY MOUTH EVERY DAY TAKE ONE TABLET BY MOUTH EVERY DAY SOLD: 06/20/2020 [facility] 50 mg 05/17/2020 12:00:00 AM EDT tablet extended release 24 hr 30 TAKE ONE TABLET BY MOUTH EVERY DAY TAKE ONE TABLET BY MOUTH EVERY DAY SOLD: 07/29/2020 [facility] 500 mg 01/23/2020 12:00:00 AM EDT tablet extended release 24 hr 60 TAKE TWO TABLETS BY MOUTH EVERY DAY TAKE TWO TABLETS BY MOUTH EVERY DAY SOLD: 07/05/2020 [facility] 500 mg 01/23/2020 12:00:00 AM EDT tablet extended release 24 hr 60 TAKE TWO TABLETS BY MOUTH EVERY DAY TAKE TWO TABLETS BY MOUTH EVERY DAY SOLD: 08/17/2020 [facility] Insurance Providers Payer name Policy type / Coverage type Policy ID Covered democrat ID Covered democrat's relationship to zavala Policy Zavala Plan Information [facility] [id number] SP [id number] [facility] [id number] SP [id number] [facility] [id number] SP [id number] [facility] [id number] SP [id number] [facility] Health Maintenance Organization (HMO) [id number] Self [id number] Medicaid [place] Medigap Part B [id number] Self [id number] [facility] [id number] Self [id number] [facility]/i Commercial [id number] Self [id number] [facility] Health Maintenance Organization (HMO) [id number] Self [id number] [facility] [id number] SP [id number] [facility] [id number] SP [id number] [facility] Commercial [id number] Self LIVIER PABLO PHY [id number] SP [id number] [facility] HEALTH CARE P [id number] S [id number] MEDICAID S [id number] S [id number] [employer] P [id number] S [id number] [id number] MEDICAID [id number] SP [id number] [employer]BS [place] PPO [id number] SP [id number] Problems, Conditions, and Diagnoses No Information Surgeries/Procedures Procedure Description Date Indications Data Source(s) OFFICE OUTPATIENT VISIT 15 MINUTES 05/31/2021 12:00:00 AM EDT [facility] ([facility] Magana MD) LARYNGOSCOPY FLEXIBLE FIBEROPTIC DIAGNOSTIC 03/08/2021 12:00:00 AM EDT [facility] ([facility], ) OFFICE OUTPATIENT NEW 30 MINUTES 03/08/2021 12:00:00 A M EDT [facility] ([facility]) OFFICE OUTPATIENT VISIT 15 MINUTES 02/24/2021 12:00:00 AM EDT [facility] ([facility] Magana MD) OFFICE OUTPATIENT VISIT 15 MINUTES 11/24/2020 12:00:00 AM EST [facility] ([facility] Magana MD) Results ID Date Data Source [id number] 01/17/2021 12:00:00 AM EDT [facility] Name Value Range Interpretation Code Description Data Lori rce(s) Supporting Document(s) SARS-CoV2 Rapid Antigen Positive [facility] This lab was ordered by [facility] and reported by [facility]. ID Date Data Source [id number] 11/22/2020 08:13:00 AM EST [facility] ([facility] Magana MD) Name Value Range Interpretation Code Description Data Lori rce(s) Supporting Document(s) Laboratory test finding (navigational concept) 1.100 uIU/ML 0 .358-3.740 Normal (applies to non-numeric results) [facility] (Dewey Magana MD) Laboratory test finding (navigational concept) 0.95 ng/dL 0 .76-1.46 Normal (applies to non-numeric results) [facility] ([facility]wey Magana MD) ID Date Data Source [id number] 11/22/2020 08:13:00 AM EST [facility] ([facility] Magana MD) Name Value Range Interpretation Code Description Data Lori rce(s) Supporting Document(s) Laboratory test finding (navigational concept) 147 mg/dL Normal (applies to non-numeric results) [facility] ([facility]wey Magana MD) Laboratory test finding (navigational concept) 192 mg/dL Above high normal [facility] (Dewey Magana MD) Laboratory test finding (navigational concept) 65 mg/dL Normal (applies to non-numeric results) [facility] (Dewey Magana MD) Laboratory test finding (navigational concept) 44 mg/dL Normal (applies to non-numeric results) [facility] (Dewey Magana MD) Laboratory test finding (navigational concept) 3.340 Normal (applies to non- numeric results) [facility] (Dewey Magana MD) Laboratory test finding (navigational concept) 103 mg/dL Normal (applies to non-numeric results) [facility] (Dewey Magana MD) ID Date Data Source [id number] 11/22/2020 08:13:00 AM EST [facility] (Dewey Magana MD) Name Value Range Interpretation Code Description Data Lori rce(s) Supporting Document(s) Laboratory test finding (navigational concept) 123 mg/dL 7 0-100 Above high normal [facility] (Dewey Magana MD) Laboratory test finding (navigational concept) 0.81 mg/dL 0 .55-1.30 Normal (applies to non-numeric results) [facility] (Dewey Magana MD) Laboratory test finding (navigational concept) 15 mg/dL 7 -18 Normal (applies to non-numeric results) [facility] (Dewey Magana MD) Laboratory test finding (navigational concept) 137 meq/L 1 36-145 Normal (applies to non-numeric results) [facility] (Dewey Magana MD) Laboratory test finding (navigational concept) Laboratory test r esult Normal (applies to non-numeric results) [facility] (Dewey Magana MD) <content>Units are mL/min/1.73 m2</content>
<content></content>
<content>Chronic Kidney Disease Staging per NKF:</content>
<content></content>
<content>Stage I & II GFR >=60 Normal to Mildly Decreased</content>
<content>Stage III GFR 30-59 Moderately Decreased</content>
<content>Stage IV GFR 15-29 Severely Decreased</content>
<content>Stage V GFR <15 Very Little GFR Left</content>
<content>ESRD GFR <15 on FISH PROCESSING SUPERVISOR</content>
<content></content> Laboratory test finding (navigational concept) 4.4 meq/L 3 .5-5.1 Normal (applies to non-numeric results) [facility] ([facility]wey Magana MD) Laboratory test finding (navigational concept) 105 meq/L 9 8-107 Normal (applies to non-numeric results) [facility] (Dewey Magana MD) Laboratory test finding (navigational concept) 9.1 mg/dL 8 .5-10.1 Normal (applies to non-numeric results) [facility] (Dewey Magana MD) Laboratory test finding (navigational concept) 26 meq/L 2 1-32 Normal (applies to non-numeric results) [facility] (Dewey Magana MD) Laboratory test finding (navigational concept) 6 meq/L 8-16 Below low normal [facility] (Dewey Magana MD) Laboratory test finding (navigational concept) 30 U/L 7 -37 Normal (applies to non-numeric results) [facility] (Dewey Magana MD) Laboratory test finding (navigational concept) 50 U/L 1 2-78 Normal (applies to non-numeric results) [facility] (Dewey Magana MD) Laboratory test finding (navigational concept) 67 U/L 4 5-117 Normal (applies to non-numeric results) [facility] (Dewey Magana MD) Laboratory test finding (navigational concept) 7.4 GM/DL 6 .4-8.2 Normal (applies to non-numeric results) [facility] (Dewey Magana MD) Laboratory test finding (navigational concept) 0.6 mg/dL 0 .2-1.0 Normal (applies to non-numeric results) [facility] (Dewey Magana MD) Laboratory test finding (navigational concept) 1.0 1.2-2.2 Below low normal [facility] (Dewey Magana MD) Laboratory test finding (navigational concept) 3.7 GM/DL 3 .2-5.2 Normal (applies to non-numeric results) [facility] (Dewey Magana MD) ID Date Data Source [id number] 11/22/2020 08:13:00 AM EST [facility] ([facility]wey Magana MD) Name Value Range Interpretation Code Description Data Lori rce(s) Supporting Document(s) Laboratory test finding (navigational concept) 10.4 10 4 .0-10.0 Above high normal [facility] (Dewey Magana MD) Laboratory test finding (navigational concept) 14.2 g/dL 1 2.0-15.5 Normal (applies to non-numeric results) [facility] (Dewey Magana MD) Laboratory test finding (navigational concept) 4.69 10 4 .00-5.40 Normal (applies to non-numeric results) [facility] (Dewey Magana MD) Laboratory test finding (navigational concept) 30.3 pg 2 7.0-33.0 Normal (applies to non-numeric results) [facility] (Dewey Magana MD) Laboratory test finding (navigational concept) 42.6 % 3 6.0-47.0 Normal (applies to non-numeric results) [facility] (Dewey Magana MD) Laboratory test finding (navigational concept) 90.8 fl 8 0.0-96.0 Normal (applies to non-numeric results) [facility] (Dewey Magana MD) Laboratory test finding (navigational concept) 33.3 g/dL 3 2.0-36.5 Normal (applies to non-numeric results) [facility] (Dewey Magana MD) Laboratory test finding (navigational concept) 13.1 % 1 1.5-14.5 Normal (applies to non-numeric results) [facility] (Dewey Magana MD) Laboratory test finding (navigational concept) 245 10 1 50-450 Normal (applies to non-numeric results) [facility] (Dewey Magana MD) Laboratory test finding (navigational concept) 31.3 % 2 4.0-44.0 Normal (applies to non-numeric results) [facility] (Dewey Magana MD) Laboratory test finding (navigational concept) 59.0 % 3 6.0-66.0 Normal (applies to non-numeric results) [facility] (Dewey Magana MD) Laboratory test finding (navigational concept) 1.5 % 0 .0-3.0 Normal (applies to non-numeric results) [facility] (Dewey Magana MD) Laboratory test finding (navigational concept) 7.4 % 2 .0-8.0 Normal (applies to non-numeric results) [facility] (Dewey Magana MD) Laboratory test finding (navigational concept) 0.3 % 0 .0-1.0 Normal (applies to non-numeric results) [facility] (Dewey Magana MD) Laboratory test finding (navigational concept) 0.0 % 0 -0 Normal (applies to non- numeric results) [facility] (Dewey Magana MD) Laboratory test finding (navigational concept) 0.5 % 0 -3.0 Normal (applies to non-numeric results) [facility] (Dewey Magana MD) Laboratory test finding (navigational concept) 6.1 10 1 .5-8.5 Normal (applies to non-numeric results) [facility] (Dewey Magana MD) Laboratory test finding (navigational concept) 3.3 10 1 .5-5.0 Normal (applies to non-numeric results) [facility] (Dewey Magana MD) Laboratory test finding (navigational concept) 0.8 10 0 .0-0.8 Normal (applies to non-numeric results) [facility] (Dewey Magana MD) Laboratory test finding (navigational concept) 0.2 10 0 .0-0.5 Normal (applies to non-numeric results) [facility] (Dewey Magana MD) Laboratory test finding (navigational concept) 0.0 10 0 .0-0.2 Normal (applies to non-numeric results) [facility] (Dewey Magana MD) Procedure Social History No Information Vital Signs ID Date Data Source UNK Name Value Range Interpretation Code Description Data Source(s) Body height 67 [in_i] 67 [in_i] [facility] ([facility]) 5'7" Body weight 310.00 [lb_av] 310.00 [lb_av] [facility] ([facility]) Body mass index (BMI) [Ratio] 48.5 kg/m2 48.5 k g/m2 [facility] ([facility]) [place] body weight 135 [lb_av] 135 [lb_av] [facility] ([facility]) Body weight 140.616 kg 140.[address] [facility] ([facility]) Body surface area Derived from formula 2.44 m2 2.[address] [facility] ([facility])
[2021-07-27] MEDS ORDERED: diphenhydrAMINE 50MG/ML VIAL (J1200) IV ONE (19:40)
[2021-07-27] MEDS ORDERED: methylPREDNISolone 125MG 2ML VIAL IV ONE (19:40)
[2021-07-27] MEDS ORDERED: FAMOTIDINE INJ 20MG/2ML VIAL (S0028 PER 1) IVP ONE (19:40)
--- OUTSIDE RECORDS SUMMARY | 2021-07-27 20:25 | CCD ---
Author Author [facility] Organization [facility] Address Unknown Phone Unavailable Care Team Providers Care Construction Safety Manager Name Role Phone Elieser Ballesteros MD Unavailable [...] TONTARSANA CRISTINA, G CHEVY PA Unavailable Unavailable TONTARSANAC RISTINA, G CHEVY PA Unavailable Unavailable TONTARSANA CRISTINA, [...] is protected by Article 27-F of the [facility] Public Health law. If you continue you may have access to information: Regarding HIV / AIDS; Provided by facilities licensed or operated by the [facility] Office of Mental Health; or Provided by the [facility] Office for People With Developmental Disabilities. If such information is present, then the following [facility] mandated warning applies: This information has [...] law may result in a fine or chcf sentence or both. A general authorization for the release of medical or other information is NOT sufficient authorization for further disc losure. Family History Family Member Name Family Member Gender Family Member Status Date o f Status Description Data Source(s) Unknown Unknown Problem [facility] ([facility]) Unknown Unknown Problem [facility] Encounters Encounter Providers Location Date Indications Data Source(s ) Outpatient Attender: CHEVY banda 05/31/2021 08:30:00 AM EDT [facility] (Dewey Magana MD) Outpatient Attender: Elieser Dudley/Lesli/Dennis/Joan mendes 03/08/2021 09:20:00 AM EDT [facility] ([facility] Outpatient Attender: CHEVY LUONGANA CRISTINA [facility] 02/24/2021 09:30:00 AM EDT [facility] ([facility]ana [facility]) Outpatient Attender: CHEVY LUONGANA CRISTINA [facility] 11/24/2020 02:00:00 PM EST [facility] ([facility] Magana MD) Outpatient Attender: CHEVY LOVE JEROME [facility] veronika 08/26/2020 02:30:00 PM EST [facility] (Dewey Magana MD) Immunizations Vaccine Date Status Description Data Source(s) COVID-19 VACCINE Link 02/09/2021 12:00:00 AM EDT completed [employer] Vaccine Series Complete: YESThis Data wa s Submitted to [facility] Via [employer]. Medications Medication Brand Name Start Date Product [...] EVERY DAY SOLD: 03/18/2021 [facility] Ipratropium Brinklow Ipratropium Brinklow 03/08/2021 12:00:00 AM EDT active [facility] ([facility], ) atorvastatin 20 MG Oral Tablet [...] TABLET BY MOUTH EVERY DAY SOLD: 09/07/2020 [facility] 500 mg 06/08/2020 12:00:00 AM EDT [...] type / Coverage type Policy ID Covered green party ID Covered green party's relationship to zavala Policy Zavala Plan Information [facility] [id number] SP [id number] [facility] [id number] SP [id number] [facility] [id number] SP [id number] [facility] [id number] SP [id number] [facility] Health Maintenance Organization (HMO) [id number] Self [id number] Medicaid [place] Medigap Part B [id number] Self [id number] [facility] [id number] Self [id number] [facility]/i Commercial [id number] Self [id number] [facility] Health Maintenance Organization (HMO) [id number] Self [id number] [facility] [id number] SP [id number] [facility] [id number] SP [id number] [facility] Commercial [id number] Self LIVIER PABLO PHY [id number] SP [id number] [facility] HEALTH CARE P [id number] S [id number] MEDICAID S [id number] S [id number] [employer] P [id number] [id number] MEDICAID [id number] SP [id number] BCBS [place] PPO [id number] SP [id number] Problems, Conditions, and Diagnoses No Information Surgeries/Procedures Procedure Description Date Indications Data Source(s) OFFICE OUTPATIENT VISIT 15 MINUTES 05/31/2021 12:00:00 AM EDT [facility] (Dewey Magana MD) LARYNGOSCOPY FLEXIBLE FIBEROPTIC DIAGNOSTIC 03/08/2021 12:00:00 AM EDT [facility] ([facility], ) OFFICE OUTPATIENT NEW 30 MINUTES 03/08/2021 12:00:00 A M EDT [facility] ([facility]) OFFICE OUTPATIENT VISIT 15 MINUTES 02/24/2021 12:00:00 AM EDT [facility] (Dewey Magana MD) OFFICE OUTPATIENT VISIT 15 MINUTES 11/24/2020 12:00:00 AM EST [facility] (Dewey Magana MD) Results ID Date Data Source [id number] 01/17/2021 12:00:00 AM EDT [facility] Name Value Range Interpretation Code Description Data Lori rce(s) Supporting Document(s) SARS-CoV2 Rapid Antigen Positive [facility] This lab was ordered by [facility] and reported by [facility]. ID Date Data Source [id number] 11/22/2020 08:13:00 AM EST [facility] (Dewey Magana MD) Name Value Range Interpretation Code Description Data Lori rce(s) Supporting Document(s) Laboratory test finding (navigational concept) 1.100 uIU/ML 0 .358-3.740 Normal (applies to non-numeric results) [facility] (Dewey Magana MD) Laboratory test finding (navigational concept) 0.95 ng/dL 0 .76-1.46 Normal (applies to non-numeric results) [facility] (Dewey Magana MD) ID Date Data Source [id number] 11/22/2020 08:13:00 AM EST [facility] (Dewey Magana [...] (Dewey Magana MD) ID Date Data Source [id number] 11/22/2020 08:13:00 AM EST [facility] (Dewey [...] Little GFR Left</content>
<content>ESRD GFR <15 on VACUUM CLEANER OPERATOR</content>
<content></content> Laboratory test finding (navigational concept) 4.4 [...] (Dewey Magana MD) ID Date Data Source [id number] 11/22/2020 08:13:00 AM EST [facility] (Dewey Magana [...] 0 .0-0.2 Normal (applies to non-numeric results) [facility] (Dewey Magana MD) Procedure Social History No Information Vital Signs ID Date Data Source UNK Name Value Range Interpretation Code Description Data Source(s) Body height 67 [in_i] 67 [in_i] [facility] ([facility]) 5'7" Body weight 310.00 [lb_av] 310.00 [lb_av] [facility] ([facility]) Body mass index (BMI) [Ratio] 48.5 kg/m2 48.5 k g/m2 [facility] ([facility]) [place] body weight 135 [lb_av] 135 [lb_av] [facility] ([facility]) Body weight 140.616 kg 140.616 kg [facility] ([facility]) Body surface area Derived from formula 2.44 m2 2.44 m2 [facility] ([facility])
[2021-07-27 21:01] VITALS: BP 178/88
[2021-07-27] MEDS ORDERED: EPIP0.3I2 IM (21:11)
[2021-07-27] MEDS ORDERED: PEPC1TAB5 PO (21:11)
[2021-07-27] MEDS ORDERED: BENA25CA4 PO (21:11)
[2021-07-27] MEDS ORDERED: PRED20TA PO (21:11)
== END 2021-07-27 21:49 | disposition home or self-care (01) ==
LOC: M ED 18:32
DX: T78.1XXA Other adverse food reactions, not elsewhere classified, initial encounter (principal); L29.8 Other pruritus; R22.0 Localized swelling, mass and lump, head; E11.9 Type 2 diabetes mellitus without complications; I10 Essential (primary) hypertension; J45.909 Unspecified asthma, uncomplicated; Z91.013 Allergy to seafood; Z79.899 Other long term (current) drug therapy
CPT/HCPCS: 93041; 94760; 96374; 96375; 99284; J1200; J2930

== ENCOUNTER → 2023-06-22 | Outpatient (REF) | payer OTHER ==
[~2023-06-22] MED LIST changes: +BENA25CA4 PO; +EPIP0.3I2 IM; -LISI10TA15 PO; +LISI10TA24 PO; +PEPC1TAB5 PO; -PHEN15CA PO; +PHEN15CA6 PO; +PRED20TA PO
[2023-06-22 11:17] LABS: HEMATOCRIT 45.4 % (36.0-47.0); HEMOGLOBIN 14.9 g/dl (12.0-15.5); MEAN CORPUSCULAR HEMOGLOBIN 29.4 pg (27.0-33.0); MEAN CORPUSCULAR HGB CONC 32.8 g/dl (32.0-36.5); MEAN CORPUSCULAR VOLUME 89.5 fl (80.0-96.0); PLATELET COUNT, AUTOMATED 300 10^3/uL (150-450); RED BLOOD COUNT 5.07 10^6/uL (4.00-5.40); WHITE BLOOD COUNT 8.7 10^3/uL (4.0-10.0)
[2023-06-22 11:32] LABS: HEMOGLOBIN A1c 5.6 % (4.0-6.0)
[2023-06-22 11:47] LABS: ALBUMIN 3.8 G/DL (3.2-5.2); ALKALINE PHOSPHATASE 60 U/L (46-116); ALT/SGPT 62 U/L (7.0-40); AST/SGOT 41 U/L (<34); BLOOD UREA NITROGEN 11 MG/DL (9-23); CALCIUM LEVEL 9.1 MG/DL (8.5-10.1); CARBON DIOXIDE LEVEL 26 MMOL/L (20-31); CHLORIDE LEVEL 103 MMOL/L (98-107); CHOLESTEROL LEVEL 133 MG/DL (<200); CHOLESTEROL RISK RATIO 3.47 (<5); CREATININE FOR GFR 0.64 MG/DL (0.55-1.30); GLOMERULAR FILTRATION RATE > 60.0 (>58); GLUCOSE, FASTING 106 MG/DL (60-100); HDL CHOLESTEROL 38.3 MG/DL (>40); LDL CHOLESTEROL 57.1 MG/DL (<100); NON-HDL-C 94.7 MG/DL; SODIUM LEVEL 138 MMOL/L (136-145); THYROID STIMULATING HORMONE 1.296 uIU/ML (0.55-4.78); TOTAL 25(OH) VITAMIN D 38.4 NG/ML (20.0-100.0); TOTAL PROTEIN 7.2 G/DL (5.7-8.2); TRIGLYCERIDES LEVEL 188 MG/DL (<150)
== END ==
LOC: M LABWUC 09:53
PROVIDERS: ATTEND Nurse Practitioner Adult Health
DX: E11.9 Type 2 diabetes mellitus without complications (principal); E78.5 Hyperlipidemia, unspecified; Z79.899 Other long term (current) drug therapy

== ENCOUNTER → 2023-09-25 | Outpatient (CLI) | payer OTHER ==
[~2023-09-25] MED LIST changes: -BIOT50004 PO; +BIOT5CAP8 PO
[2023-09-25 12:51] LABS: HEMOGLOBIN 15.5 g/dl (12.0-15.5); MEAN CORPUSCULAR HEMOGLOBIN 28.7 pg (27.0-33.0); MEAN CORPUSCULAR HGB CONC 32.3 g/dl (32.0-36.5); MEAN CORPUSCULAR VOLUME 88.7 fl (80.0-96.0); PLATELET COUNT, AUTOMATED 329 10^3/uL (150-450); RED BLOOD COUNT 5.41 10^6/uL (4.00-5.40)
[2023-09-25 13:17] LABS: TOTAL 25(OH) VITAMIN D 36.5 NG/ML (20.0-100.0)
[2023-09-25 13:18] LABS: THYROID STIMULATING HORMONE 1.957 uIU/ML (0.55-4.78)
[2023-09-25 13:19] LABS: ALBUMIN 3.9 G/DL (3.2-5.2); ALKALINE PHOSPHATASE 70 U/L (46-116); ALT/SGPT 45 U/L (7.0-40); AST/SGOT 26 U/L (<34); BILIRUBIN,TOTAL 0.8 MG/DL (0.3-1.2); BLOOD UREA NITROGEN 18 MG/DL (9-23); CALCIUM LEVEL 9.6 MG/DL (8.5-10.1); CARBON DIOXIDE LEVEL 29 MMOL/L (20-31); CHLORIDE LEVEL 102 MMOL/L (98-107); CHOLESTEROL LEVEL 150 MG/DL (<200); CHOLESTEROL RISK RATIO 3.33 (<5); CREATININE FOR GFR 0.72 MG/DL (0.55-1.30); GLOMERULAR FILTRATION RATE > 60.0 (>58); GLUCOSE, FASTING 122 MG/DL (60-100); LDL CHOLESTEROL 51.4 MG/DL (<100); POTASSIUM SERUM 4.3 MMOL/L (3.5-5.1); SODIUM LEVEL 139 MMOL/L (136-145); TOTAL PROTEIN 7.4 G/DL (5.7-8.2); TRIGLYCERIDES LEVEL 268 MG/DL (<150)
[2023-09-25 13:20] LABS: FREE T4 1.18 NG/DL (0.89-1.76)
[2023-09-25 13:27] LABS: HEMOGLOBIN A1c 6.1 % (4.0-6.0)
== END ==
LOC: M WUC 08:44
PROVIDERS: ATTEND Nurse Practitioner Adult Health
DX: E11.9 Type 2 diabetes mellitus without complications (principal); E78.5 Hyperlipidemia, unspecified; Z79.899 Other long term (current) drug therapy; E55.9 Vitamin D deficiency, unspecified

== ENCOUNTER → 2023-12-26 | Outpatient (REF) | payer BC, OTHER | LOC: M SFHCWAGY 17:44 | PROVIDERS: ATTEND Nurse Practitioner Family | DX: Z12.4 Encounter for screening for malignant neoplasm of cervix (principal) ==

== ENCOUNTER → 2023-12-26 | Outpatient (CLI) | payer OTHER | LOC: M WHC 13:42 | PROVIDERS: ATTEND Nurse Practitioner Family | DX: Z12.31 Encounter for screening mammogram for malignant neoplasm of breast (principal) ==

== ENCOUNTER → 2024-01-24 | Outpatient (CLI) | payer OTHER | LOC: M RAD 07:23 | PROVIDERS: ATTEND Nurse Practitioner Adult Health | DX: R19.03 Right lower quadrant abdominal swelling, mass and lump (principal) ==

== ENCOUNTER → 2024-02-21 | Outpatient (CLI) | payer OTHER ==
[2024-02-21 10:18] LABS: HEMATOCRIT 46.9 % (36.0-47.0); HEMOGLOBIN 15.3 g/dl (12.0-15.5); MEAN CORPUSCULAR HEMOGLOBIN 28.8 pg (27.0-33.0); MEAN CORPUSCULAR HGB CONC 32.6 g/dl (32.0-36.5); MEAN CORPUSCULAR VOLUME 88.2 fl (80.0-96.0); PLATELET COUNT, AUTOMATED 282 10^3/uL (150-450); RED BLOOD COUNT 5.32 10^6/uL (4.00-5.40); WHITE BLOOD COUNT 12.2 10^3/uL (4.0-10.0)
[2024-02-21 10:37] LABS: ALBUMIN 3.8 G/DL (3.2-5.2); ALKALINE PHOSPHATASE 70 U/L (46-116); ALT/SGPT 46 U/L (7.0-40); AST/SGOT 25 U/L (<34); BILIRUBIN,TOTAL 0.5 MG/DL (0.3-1.2); BLOOD UREA NITROGEN 11 MG/DL (9-23); CALCIUM LEVEL 9.5 MG/DL (8.5-10.1); CARBON DIOXIDE LEVEL 28 MMOL/L (20-31); CHLORIDE LEVEL 102 MMOL/L (98-107); CHOLESTEROL LEVEL 157 MG/DL (<200); CHOLESTEROL RISK RATIO 3.74 (<5); CREATININE FOR GFR 0.63 MG/DL (0.55-1.30); GLOMERULAR FILTRATION RATE > 60.0 (>58); GLUCOSE, FASTING 107 MG/DL (60-100); HDL CHOLESTEROL 41.9 MG/DL (>40); LDL CHOLESTEROL 59.7 MG/DL (<100); NON-HDL-C 115.1 MG/DL; POTASSIUM SERUM 4.5 MMOL/L (3.5-5.1); SODIUM LEVEL 136 MMOL/L (136-145); THYROID STIMULATING HORMONE 1.474 uIU/ML (0.55-4.78); TOTAL PROTEIN 7.3 G/DL (5.7-8.2); TRIGLYCERIDES LEVEL 277 MG/DL (<150)
[2024-02-21 10:38] LABS: TOTAL 25(OH) VITAMIN D 28.6 NG/ML (20.0-100.0)
== END ==
LOC: M WUC 08:39
PROVIDERS: ATTEND Nurse Practitioner Adult Health
DX: K21.9 Gastro-esophageal reflux disease without esophagitis (principal); E11.9 Type 2 diabetes mellitus without complications; B37.32 Chronic candidiasis of vulva and vagina; E66.9 Obesity, unspecified; E55.9 Vitamin D deficiency, unspecified; I10 Essential (primary) hypertension

== ENCOUNTER → 2024-08-02 | Outpatient (CLI) | payer OTHER ==
[2024-08-02 10:38] LABS: HEMOGLOBIN 14.6 g/dl (12.0-15.5); MEAN CORPUSCULAR HEMOGLOBIN 28.5 pg (27.0-33.0); MEAN CORPUSCULAR HGB CONC 32.4 g/dl (32.0-36.5); MEAN CORPUSCULAR VOLUME 87.7 fl (80.0-96.0); PLATELET COUNT, AUTOMATED 284 10^3/uL (150-450); RED BLOOD COUNT 5.13 10^6/uL (4.00-5.40); WHITE BLOOD COUNT 8.5 10^3/uL (4.0-10.0)
[2024-08-02 10:59] LABS: HEMOGLOBIN A1c 5.9 % (4.0-6.0)
[2024-08-02 11:09] LABS: ALBUMIN 3.7 G/DL (3.2-5.2); ALKALINE PHOSPHATASE 66 U/L (35-104); ALT/SGPT 53 U/L (7.0-40); AST/SGOT 32 U/L (<34); BILIRUBIN,TOTAL 0.7 MG/DL (0.3-1.2); BLOOD UREA NITROGEN 12 MG/DL (9-23); CALCIUM LEVEL 9.6 MG/DL (8.5-10.1); CARBON DIOXIDE LEVEL 26 MMOL/L (20-31); CHLORIDE LEVEL 105 MMOL/L (98-107); CHOLESTEROL LEVEL 166 MG/DL (<200); CHOLESTEROL RISK RATIO 4.09 (<5); CREATININE FOR GFR 0.63 MG/DL (0.55-1.30); GLOMERULAR FILTRATION RATE > 60.0 (>58); GLUCOSE, FASTING 101 MG/DL (60-100); HDL CHOLESTEROL 40.5 MG/DL (>40); LDL CHOLESTEROL 84.7 MG/DL (<100); NON-HDL-C 125.5 MG/DL; POTASSIUM SERUM 4.2 MMOL/L (3.5-5.1); SODIUM LEVEL 139 MMOL/L (136-145); TOTAL PROTEIN 7.7 G/DL (5.7-8.2); TRIGLYCERIDES LEVEL 204 MG/DL (<150)
[2024-08-02 11:12] LABS: THYROID STIMULATING HORMONE 1.084 uIU/ML (0.55-4.78)
== END ==
LOC: M LAB 09:03
PROVIDERS: ATTEND Nurse Practitioner Adult Health
DX: E78.5 Hyperlipidemia, unspecified (principal); E11.9 Type 2 diabetes mellitus without complications; B37.32 Chronic candidiasis of vulva and vagina; K21.9 Gastro-esophageal reflux disease without esophagitis; E66.9 Obesity, unspecified; E55.9 Vitamin D deficiency, unspecified

== ENCOUNTER → 2024-12-09 | Outpatient (CLI) | payer OTHER ==
[2024-12-09 13:44] LABS: HEMATOCRIT 47.4 % (36.0-47.0); HEMOGLOBIN 15.1 g/dl (12.0-15.5); MEAN CORPUSCULAR HEMOGLOBIN 28.3 pg (27.0-33.0); MEAN CORPUSCULAR HGB CONC 31.9 g/dl (32.0-36.5); MEAN CORPUSCULAR VOLUME 88.9 fl (80.0-96.0); PLATELET COUNT, AUTOMATED 296 10^3/uL (150-450); RED BLOOD COUNT 5.33 10^6/uL (4.00-5.40); WHITE BLOOD COUNT 9.3 10^3/uL (4.0-10.0)
[2024-12-09 13:49] LABS: ALBUMIN 3.9 G/DL (3.2-5.2); ALKALINE PHOSPHATASE 64 U/L (35-104); ALT/SGPT 36 U/L (7.0-40); AST/SGOT 21 U/L (<34); BILIRUBIN,TOTAL 0.7 MG/DL (0.3-1.2); BLOOD UREA NITROGEN 14 MG/DL (9-23); CALCIUM LEVEL 9.6 MG/DL (8.5-10.1); CARBON DIOXIDE LEVEL 27 MMOL/L (20-31); CHLORIDE LEVEL 105 MMOL/L (98-107); CHOLESTEROL LEVEL 138 MG/DL (<200); CHOLESTEROL RISK RATIO 3.27 (<5); CREATININE FOR GFR 0.66 MG/DL (0.55-1.30); GLOMERULAR FILTRATION RATE > 60.0 (>58); GLUCOSE, FASTING 107 MG/DL (60-100); HDL CHOLESTEROL 42.2 MG/DL (>40); LDL CHOLESTEROL 60.6 MG/DL (<100); NON-HDL-C 95.8 MG/DL; POTASSIUM SERUM 4.3 MMOL/L (3.5-5.1); SODIUM LEVEL 140 MMOL/L (136-145); TOTAL PROTEIN 7.7 G/DL (5.7-8.2); TRIGLYCERIDES LEVEL 176 MG/DL (<150)
[2024-12-09 13:51] LABS: FREE T4 1.17 NG/DL (0.89-1.76); THYROID STIMULATING HORMONE 1.287 uIU/ML (0.55-4.78); TOTAL 25(OH) VITAMIN D 26.7 NG/ML (20.0-100.0)
[2024-12-09 14:10] LABS: HEMOGLOBIN A1c 5.4 % (4.0-6.0)
== END ==
LOC: M WUC 08:12
DX: E11.9 Type 2 diabetes mellitus without complications (principal); B37.32 Chronic candidiasis of vulva and vagina; K21.9 Gastro-esophageal reflux disease without esophagitis; E66.9 Obesity, unspecified; E78.5 Hyperlipidemia, unspecified; E55.9 Vitamin D deficiency, unspecified

== ENCOUNTER → 2025-06-20 | Outpatient (CLI) | payer OTHER ==
[2025-06-20 10:10] LABS: PLATELET COUNT, AUTOMATED 296 10^3/uL (150-450)
[2025-06-20 10:21] LABS: ESTIMATED AVERAGE GLUCOSE 128.0 MG/DL (60-110)
[2025-06-20 10:44] LABS: ALT/SGPT 49 U/L (7.0-40); AST/SGOT 35 U/L (<34); CALCIUM LEVEL 9.0 MG/DL (8.5-10.1); CARBON DIOXIDE LEVEL 24 MMOL/L (20-31); CHLORIDE LEVEL 102 MMOL/L (98-107); CHOLESTEROL LEVEL 133 MG/DL (<200); CHOLESTEROL RISK RATIO 3.07 (<5); CREATININE FOR GFR 0.57 MG/DL (0.55-1.30); GLOMERULAR FILTRATION RATE > 90.0 (>58); LDL CHOLESTEROL 51.3 MG/DL (<100); NON-HDL-C 89.7 MG/DL; POTASSIUM SERUM 3.9 MMOL/L (3.5-5.1); SODIUM LEVEL 136 MMOL/L (136-145); TRIGLYCERIDES LEVEL 192 MG/DL (<150)
[2025-06-20 10:46] LABS: FREE T4 1.28 NG/DL (0.89-1.76); TOTAL 25(OH) VITAMIN D 39.4 NG/ML (20.0-100.0)
== END ==
LOC: M LAB 08:32
DX: E11.9 Type 2 diabetes mellitus without complications (principal); K21.9 Gastro-esophageal reflux disease without esophagitis; E55.9 Vitamin D deficiency, unspecified; E66.9 Obesity, unspecified; B37.32 Chronic candidiasis of vulva and vagina; E78.5 Hyperlipidemia, unspecified